=== PATIENT | female | born 2000 | race Caucasian/White ===

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

== ENCOUNTER 2018-02-06 14:19 | Emergency (ER) | payer OTHER ==
[2018-02-06 14:53] VITALS: BP 120/79
--- NOTE | 2018-02-06 16:18 | UC ---
UC General HPI - HPI Summary HPI Summary: pt c/o nausea and diarrhea since last pm. also notes episodic sharp abdominal pains with the diarrhea. denies vomiting and is starting to improved. denies vomiting, travel hx, fever, hx IBD, recent antibiotic use and sick contacts. - History of Current Complaint Chief Complaint: UCGI Stated Complaint: NAUSEA, DIARRHEA Time Seen by Provider: 02/06/18 16:00 Hx Obtained From: Patient Hx Last Menstrual Period: 02/05/18 Pain Intensity: 4 Associated Signs & Symptoms: Positive: Diarrhea, Nausea. Negative: Fever, Vomiting - Allergy/Home Medications Allergies/Adverse Reactions: Allergies Allergy/AdvReac Type Severity Reaction Status Date / Time No Known Allergies Allergy Verified 02/06/18 14:45 Home Medications: Home Medications Cyclobenzaprine TAB* [Flexeril 10 MG TAB*] 1 tab TID PRN 02/06/18 [History Confirmed 02/06/18] Ibuprofen TAB* [Motrin TAB* 600 MG] 1 tab Q6HR PRN 02/06/18 [History Confirmed 02/06/18] Norgestrel/Ethinyl Estrad TAB* [Ogestrel TAB 0.5/0.05*] 1 tab QPM 02/06/18 [ History Confirmed 02/06/18] PMH/Surg Hx/FS Hx/Imm Hx Previously Healthy: Yes - Surgical History Surgical History: Yes Surgery Procedure, Year, and Place: T&A - Family History Known Family History: Positive: Cardiac Disease - Social History Occupation: Employed Full-time Alcohol Use: Occasionally Substance Use Type: Marijuana Substance Use Comment - Amount & Last Used: occasionally Smoking Status (MU): Light Every Day Tobacco Smoker Amount Used/How Often: 1 cig/month Have You Smoked in the Last Year: No - Immunization History Most Recent Influenza Vaccination: none Vaccination Up to Date: Yes Review of Systems Constitutional: Negative Skin: Negative Eyes: Negative ENT: Negative Respiratory: Negative Cardiovascular: Negative Gastrointestinal: Abdominal Pain, Diarrhea, Nausea Genitourinary: Negative Motor: Negative Neurovascular: Negative Musculoskeletal: Negative Neurological: Negative Psychological: Negative Is Patient Immunocompromised?: No All Other Systems Reviewed And Are Negative: Yes Physical Exam Triage Information Reviewed: Yes Appearance: Well-Appearing Vital Signs: Initial Vital Signs Temp 97.5 F 02/06/18 14:47 Pulse 79 02/06/18 14:47 Resp 16 02/06/18 14:47 BP 120/79 02/06/18 14:47 Pulse Ox 100 02/06/18 14:47 Vital Signs Reviewed: Yes Eyes: Positive: Conjunctiva Clear ENT: Positive: Pharynx normal, TMs normal. Negative: Nasal congestion, Nasal drainage Neck: Positive: Supple, Nontender, No Lymphadenopathy Respiratory: Positive: Lungs clear, Normal breath sounds Cardiovascular: Positive: RRR, No Murmur Abdomen Description: Positive: Nontender, No Organomegaly, Soft. Negative: Distended, Guarding Bowel Sounds: Positive: Present Musculoskeletal: Positive: ROM Intact Neurological: Positive: Alert Psychological: Positive: Age Appropriate Behavior Skin Exam: Normal Course/Dx - Course Course Of Treatment: non toxic, no acute abdomen, s/s's improving thus tx supportive. - Differential Dx - Multi-Symptom Provider Diagnoses: nausea. diarrhea Discharge - Sign-Out/Discharge Documenting (check all that apply): Patient Departure All imaging exams completed and their final reports reviewed: No Studies - Discharge Plan Condition: Stable Disposition: HOME Patient Education Materials: Acute Nausea and Vomiting (ED), Acute Diarrhea (ED ) Forms: *Work Release Referrals: Arthur Andres MD [Primary Care Provider] - 5 Days - Billing Disposition and Condition Condition: STABLE Disposition: Home
== END 2018-02-06 16:23 | disposition home or self-care (01) ==
LOC: UCCORT 14:19
DX: R11.0 Nausea (principal); R19.7 Diarrhea, unspecified; F17.210 Nicotine dependence, cigarettes, uncomplicated
CPT/HCPCS: 99211; G0463

== ENCOUNTER 2018-03-05 13:28 | Emergency (ER) | payer OTHER ==
[2018-03-05 13:54] VITALS: BP 135/77
--- NOTE | 2018-03-05 14:04 | UC ---
Throat Pain/Nasal Bar HPI - HPI Summary HPI Summary: 17 yo female presents with sore throat and cough for the last week. She is also having a lot of sinus congestion and post nasal drip. She has not been taking anything OTC. Denies fever, chills, SOB, chest pain, abdominal pain, n/v. - History of Current Complaint Chief Complaint: UCGeneralIllness Stated Complaint: ST Time Seen by Provider: 03/05/18 14:04 Hx Obtained From: Patient Hx Last Menstrual Period: 02/02/18 Onset/Duration: Gradual Onset Severity: Moderate Pain Intensity: 6 Pain Scale Used: 0-10 Numeric - Allergies/Home Medications Allergies/Adverse Reactions: Allergies Allergy/AdvReac Type Severity Reaction Status Date / Time No Known Allergies Allergy Verified 03/05/18 13:50 Home Medications: Home Medications Hydrocodone/Acetaminophen [Hydrocodone/Acetaminophen 5-325 mg] 1 tab PO BEDTIME PRN 03/05/18 [History Confirmed 03/05/18] PMH/Surg Hx/FS Hx/Imm Hx - Additional Past Medical History Additional PMH: None - Surgical History Surgical History: Yes Surgery Procedure, Year, and Place: T&A - Family History Known Family History: Positive: Cardiac Disease - Social History Lives: With Family Alcohol Use: Occasionally Substance Use Type: Marijuana Substance Use Comment - Amount & Last Used: occasionally Smoking Status (MU): Never Smoked Tobacco Amount Used/How Often: 1 cig/month Have You Smoked in the Last Year: No - Immunization History Most Recent Influenza Vaccination: none Vaccination Up to Date: Yes Review of Systems All Other Systems Reviewed And Are Negative: Yes Constitutional: Positive: Negative Skin: Positive: Negative Eyes: Positive: Negative ENT: Positive: Sore Throat, Sinus Congestion Respiratory: Positive: Cough Cardiovascular: Positive: Negative Gastrointestinal: Positive: Negative Neurovascular: Positive: Negative Neurological: Positive: Negative Psychological: Positive: Negative Physical Exam - Summary Physical Exam Summary: GENERAL: NAD. WDWN. No pain distress. SKIN: No rashes, sores, lesions, or open wounds. HEENT: Head: AT/NC Eyes: EOM intact. Conjunctiva clear without inflammation or discharge. Ears: Hearing grossly normal. TMs intact, no bulging, erythema, or edema. Nose: Nasal mucosa mildly swollen and erythematous without discharge. TTP maxillary > frontal sinus. Positive post nasal drip Throat: Posterior oropharynx with mild erythema. No exudates. Uvula midline. NECK: Supple. Nontender. No lymphadenopathy. CHEST: CTAB. No r/r/w. No accessory muscle use. Breathing comfortably and in no distress. CV: RRR. Without m/r/g. Pulses intact. NEURO: Alert. PSYCH: Age appropriate behavior Triage Information Reviewed: Yes Vital Signs: Initial Vital Signs Temp 97.9 F 03/05/18 13:48 Pulse 64 03/05/18 13:48 Resp 14 03/05/18 13:48 BP 135/77 03/05/18 13:48 Pulse Ox 100 03/05/18 13:48 Vital Signs Reviewed: Yes Throat Pain/Nasal Course/Dx - Course Course Of Treatment: Suspect sore throat/cough secondary to sinusitis and post nasal drip. - Differential Dx/Diagnosis Provider Diagnoses: Sinusitis Discharge - Sign-Out/Discharge Documenting (check all that apply): Patient Departure All imaging exams completed and their final reports reviewed: No Studies - Discharge Plan Condition: Stable Disposition: HOME Prescriptions: Amoxicillin PO (*) [Amoxicillin 500 MG CAP*] 500 mg PO Q12H #14 cap Fluticasone NASAL SPRAY 50MCG* [Flonase NASAL SPRAY 50MCG*] 2 spray BOTH NARES DAILY #1 btl Patient Education Materials: Sinusitis (ED) Forms: *Work Release Referrals: Arthur Andres MD [Primary Care Provider] - Additional Instructions: If you develop a fever, shortness of breath, chest pain, new or worsening symptoms - please call your PCP or go to the ED. - Billing Disposition and Condition Condition: STABLE Disposition: Home - Attestation Statements Provider Attestation: I was available for consult. This patient was seen by the [facility]. The patient was not presented to, seen by, or examined by me. -Araseli
== END 2018-03-05 14:31 | disposition home or self-care (01) ==
LOC: UCCORT 13:28
DX: J01.90 Acute sinusitis, unspecified (principal)
CPT/HCPCS: 87651; 99212; G0463

== ENCOUNTER 2018-08-27 19:57 | Emergency (ER) | payer OTHER ==
[2018-08-27 20:16] VITALS: BP 155/88
[2018-08-27] MEDS ORDERED: Albuterol 2.5 MG/3 ML NEB.SOL* (0.083%) INH ONE (20:28)
[2018-08-27] MEDS ORDERED: predniSONE TAB* 20 MG PO ONE (20:29)
--- NOTE | 2018-08-27 20:31 | UC ---
UC General HPI - HPI Summary HPI Summary: pt c/o 2 day hx cough with congestion, chest tightness and wheezing. subjective fever/chills. + hx asthma. began as a head cold. - History of Current Complaint Chief Complaint: UCRespiratory Stated Complaint: COUGH Time Seen by Provider: 08/27/18 20:24 Hx Obtained From: Patient Hx Last Menstrual Period: [id number] Onset/Duration: Gradual Onset Timing: Constant Pain Intensity: 5 Associated Signs & Symptoms: Negative: Chest Pain - Allergy/Home Medications Allergies/Adverse Reactions: Allergies Allergy/AdvReac Type Severity Reaction Status Date / Time No Known Allergies Allergy Verified 03/05/18 13:50 PMH/Surg Hx/FS Hx/Imm Hx Respiratory History: Asthma - Surgical History Surgical History: Yes Surgery Procedure, Year, and Place: T&A - Family History Known Family History: Positive: Cardiac Disease - Social History Occupation: Employed Full-time Alcohol Use: Occasionally Substance Use Type: Marijuana Substance Use Comment - Amount & Last Used: occasionally Smoking Status (MU): Light Every Day Tobacco Smoker Type: eCigarettes Amount Used/How Often: i/day Have You Smoked in the Last Year: No - Immunization History Most Recent Influenza Vaccination: none Vaccination Up to Date: Yes Review of Systems All Other Systems Reviewed And Are Negative: Yes Constitutional: Positive: Fever, Chills ENT: Positive: Sinus Congestion Respiratory: Positive: Shortness Of Breath, Cough Physical Exam Triage Information Reviewed: Yes Appearance: Well-Appearing Vital Signs: Initial Vital Signs Temp 97.8 F 08/27/18 20:10 Pulse 124 08/27/18 20:10 Resp 17 08/27/18 20:10 BP 155/88 08/27/18 20:10 Pulse Ox 98 08/27/18 20:10 Vital Signs Reviewed: Yes Eyes: Positive: Conjunctiva Clear ENT: Positive: Pharynx normal, Nasal congestion, Nasal drainage - clear, TMs normal Neck: Positive: Supple, Nontender, No Lymphadenopathy Respiratory: Positive: No respiratory distress, Decreased breath sounds, Other: - congested - bronchospastic cough. Cardiovascular: Positive: RRR, No Murmur. Negative: Tachycardia Abdomen Description: Positive: Nontender, No Organomegaly, Soft Bowel Sounds: Positive: Present Musculoskeletal: Positive: ROM Intact Neurological: Positive: Alert Psychological: Positive: Age Appropriate Behavior Skin Exam: Normal Re-Evaluation - Re-Evaluation First Eval Re-Evaluation Time: 20:52 Change: Improved - aeration has improved. HR=96 Course/Dx - Course Course Of Treatment: No hx htn. BP illness/visit related. - Differential Dx - Multi-Symptom Differential Diagnoses: Other - no concern for pneumonia - Diagnoses Provider Diagnosis: Asthma Discharge - Sign-Out/Discharge Documenting (check all that apply): Patient Departure All imaging exams completed and their final reports reviewed: No Studies - Discharge Plan Condition: Stable Disposition: HOME Prescriptions: Azithromycin TAB* [Zithromax TAB (Z-RUSTY) 250 mg #6 tabs] 2 tab PO .TODAY, THEN 1 DAILY #1 rusty predniSONE [Prednisone 20 MG TAB] 40 mg PO DAILY 4 Days #8 tablet Patient Education Materials: Asthma (ED) Referrals: Arthur Andres MD [Primary Care Provider] - 5 Days Additional Instructions: USE THE ALBUTEROL INHALER 2 PUFFS EVERY 6 HOURS - Billing Disposition and Condition Condition: STABLE Disposition: Home
[2018-08-27] MEDS ORDERED: Albuterol HFA INHALER* 8 gm MDI INH ONE (20:53)
== END 2018-08-27 21:08 | disposition home or self-care (01) ==
LOC: UCCORT 19:57
DX: J45.909 Unspecified asthma, uncomplicated (principal); R05 Cough; F17.210 Nicotine dependence, cigarettes, uncomplicated
CPT/HCPCS: 99213; A9270-GY; G0463; J7512